=== PATIENT | male | born 1965 | race Caucasian/White ===

== ENCOUNTER 2017-01-31 11:37 | Emergency (ER) | payer OTHER ==
[~2017-01-31] VITALS: Ht 170.2 cm; Wt 74.8 kg
--- NOTE | ~2017-01-31 | CR142 ---
[facility] A Service of [facility] & [facility] RADIOLOGY TEXT RESULTS PATIENT: NEDA TOLEDO LOCATION: SED : 61 UNIT #: [id number] AGE: [address]: Layton Rivers MD SEX: M ORDER DR: [id number] [place] [id number] E MR#: [id number] Acc #: [id number] NAME: NEDA TOLEDO. : 1965 SEX: M STUDY DATE/TIME: 01/31/2017 11:59 UNIT: SED ROOM: STUDY DESCRIPTION: CR Hand Min 3 Views Rt Attending Physician: Layton Rivers M.D. Ordering Physician: Layton Rivers M.D. Primary Care Physician: No Primary Care Physician MEDICAL IMAGING REPORT This report is preliminary unless electronic signature is present. EXAM Right hand. INDICATIONS Right hand pain and trauma. FINDINGS Three views of the right hand without comparison. There is soft tissue swelling over the dorsum of the hand. There is no displaced fracture. No foreign body. IMPRESSION Negative right hand. Dictated by... Amado Marie M.D. THIS IS AN ELECTRONICALLY VERIFIED REPORT Amado Marie M.D. at 02/01/2017 1:25 PM Suri TD: 02/01/2017 05:23 JOB #: [id number] MEDICAL IMAGING REPORT Page 1 of 1
--- NOTE | ~2017-01-31 | CR282 ---
[facility]. [facility] A Service of [facility] RADIOLOGY TEXT RESULTS PATIENT: NEDA TOLEDO LOCATION: SED : 61 UNIT #: [id number] AGE: [address]: Layton Rivers MD SEX: M ORDER DR: [id number] [place] [id number] E MR#: [id number] Acc #: [id number] NAME: NEDA TOLEDO. : 1965 SEX: M STUDY DATE/TIME: 01/31/2017 11:59 UNIT: SED ROOM: STUDY DESCRIPTION: CR Wrist Min 3 View Rt Attending Physician: Layton Rivers M.D. Ordering Physician: Layton Rivers M.D. Primary Care Physician: No Primary Care Physician MEDICAL IMAGING REPORT This report is preliminary unless electronic signature is present. EXAM Right wrist. INDICATIONS Right wrist trauma. Fall. Posterior swelling. FINDINGS Three views of the right wrist without comparison. There is no acute fracture or dislocation. Alignment is anatomic. No foreign body. IMPRESSION Negative right wrist. Dictated by... Amado Marie M.D. THIS IS AN ELECTRONICALLY VERIFIED REPORT Amado Marie M.D. at 02/01/2017 1:25 PM Suri TD: 02/01/2017 05:17 JOB #: [id number] MEDICAL IMAGING REPORT Page 1 of 1
[~2017-01-31 11:37] MED LIST: BACTRIM DS TABL1 TAB PO; KEFLEX PO; VICODIN 5/500 T1 TAB PO
[2017-01-31] MEDS ORDERED: NO MEDICATIONS (11:50)
== END 2017-01-31 13:06 | disposition home or self-care (01) ==
LOC: SED 11:37
DX: S63.521A Sprain of radiocarpal joint of right wrist, initial encounter (principal); S60.221A Contusion of right hand, initial encounter; F17.210 Nicotine dependence, cigarettes, uncomplicated; Z88.0 Allergy status to penicillin; W23.0XXA Caught, crushed, jammed, or pinched between moving objects, initial encounter; Y93.89 Activity, other specified; Y92.69 Other specified industrial and construction area as the place of occurrence of the external cause; Y99.0 Civilian activity done for income or pay
CPT/HCPCS: 29125; 73110; 73130; 99283